=== PATIENT | male | born 1990 ===

== ENCOUNTER 2019-10-30 23:11 | Emergency (ER) | payer SELFPAY ==
[~2019-10-30] VITALS: Ht 167.6 cm; Wt 65.0 kg
[2019-10-30] MEDS ORDERED: DIPH,PERTUSS(ACELL),TET VAC/PF 0.5 ML IM-VACC ONE ×2 (23:30→23:51)
--- NOTE | 2019-10-30 23:44 | NUR ---
Pt now in CT.
--- NOTE | 2019-10-31 00:06 | NUR ---
Medicated per MAR, placed back on cardiac and vitals signs monitors. VSS. Safety precautions in place, call light placed within reach.
--- NOTE | 2019-10-31 01:31 | NUR ---
Pt sleeping in no acute distress, respirations even and unlabored.
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
[2019-10-31 01:48] VITALS: BP 112/58
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
== END 2019-10-31 02:39 | disposition home or self-care (01) ==
LOC: ED 10-31 02:33
DX: G89.11 Acute pain due to trauma (principal); R51 Headache; M79.641 Pain in right hand; M25.572 Pain in left ankle and joints of left foot; F17.200 Nicotine dependence, unspecified, uncomplicated; Z72.9 Problem related to lifestyle, unspecified; Y04.8XXA Assault by other bodily force, initial encounter; Y93.89 Activity, other specified; Y92.410 Unspecified street and highway as the place of occurrence of the external cause; Y99.8 Other external cause status
CPT/HCPCS: 70450; 70486; 72125; 90471; 90715; 99285